=== PATIENT | female | born 1985 | race Caucasian/White ===

== ENCOUNTER 2019-12-14 16:43 | Emergency (ER) | payer BC, SELFPAY ==
[2019-12-14 16:58] VITALS: BP 151/80; PULSE 97; RESP 18; TEMP 36.6; O2SAT 99
--- NOTE | 2019-12-14 17:00 | ED.GENADULT ---
HPI - General Adult General Chief complaint: Skin/Abscess/Foreign Body Stated complaint: right foot wood under toenail Time Seen by Provider: 12/14/19 17:01 Source: patient Mode of arrival: ambulatory Limitations: no limitations History of Present Illness HPI narrative: 34-year-old female patient presents to the [facility] with complaints of a foreign body to the right pinky toe. Patient states that she was walking barefooted and kicked at 2 x 4 and got a splinter into under her pinky. Patient states that they attempted to try and get it out without success. Patient states that she is concerned because it starting to swell and she is currently 15 weeks . Patient is up-to-date on her tetanus. Related Data Home Medications Medication Instructions Recorded Confirmed PNV cmb#95-ferrous fumarate-FA 1 tablet PO DAILY 12/14/19 12/14/19 [ Formula] Allergies Allergy/AdvReac Type Severity Reaction Status Date / Time amoxicillin [From Augmentin] Allergy Hives Verified 12/14/19 17:04 clavulanic acid Allergy Hives Verified 12/14/19 17:04 [From Augmentin] Review of Systems Review of Systems: Narrative: CONSTITUTIONAL: Denies fever, chills, or sweats. EYES: Denies visual changes, redness, or discharge. ENT: Denies rhinorrhea, congestion, sore throat, or otalgia. CARDIOVASCULAR: Denies chest pain, palpitations, or edema. RESPIRATORY: Denies cough or dyspnea. GASTROINTESTINAL: Denies abdominal pain, nausea, vomiting, or diarrhea. GENITOURINARY: Denies dysuria or hematuria. SKIN: Denies rash or itching. MUSCULOSKELETAL: Denies back pain, joint pain, or myalgia. Obvious splinter under the toenail of the right pinky toe. NEUROLOGIC: Denies headache, numbness, or weakness. PSYCHIATRIC: Denies anxiety or depression. PMFSH Comments At the time of my signature I agree with nursing past medical history, surgical, social, and family history. There is no relevant family history pertinent to the presenting complaint. Exam Narrative: Exam Narrative: GENERAL: Well-appearing, well-nourished, and in no acute distress. HEAD: Normocephalic, atraumatic. EYES: PERRLA and EOMI. ENT: Nares clear, no rhinorrhea or epistaxis. Mucous membranes moist. NECK: Supple. No lymphadenopathy CHEST: Clear to auscultation. No respiratory distress. HEART: Regular rate and rhythm. No murmur heard. Normal peripheral pulses. ABDOMEN: Soft, nontender, nondistended, normal active bowel sounds. EXTREMITIES: Normal range of motion. No edema. Patient has an obvious splinter under the pinky toe of the right foot. There is slight swelling and erythema noted to the distal portion of the toe. SKIN: Warm, dry, no rash. NEURO: No focal deficits. Alert and oriented x3. Course Vital Signs Vital signs: Vital Signs Temperature 36.6 C 12/14/19 16:58 Pulse Rate 97 12/14/19 16:58 Respiratory Rate 18 12/14/19 16:58 Blood Pressure 151/80 H 12/14/19 16:58 Pulse Oximetry 99 12/14/19 16:58 Temperature 36.6 C 12/14/19 16:58 Pulse Rate 97 12/14/19 16:58 Respiratory Rate 18 12/14/19 16:58 Blood Pressure 151/80 H 12/14/19 16:58 Pulse Oximetry 99 12/14/19 16:58 Vital signs reviewed. The patient has been informed that they may have pre-hypertension or Hypertension based on a BP reading in the department. I recommend that the patient call the primary care provider listed on their discharge instructions or a physician of their choice this week to arrange follow up for further evaluation of possible pre-hypertension or Hypertension Procedures Other Procedure Procedure 1: Other Procedure: Patient refusing injected lidocaine or topical lidocaine due to being . Scissors were used to cut away part of the nail on the right pinky toe. The foreign body/splinter was exposed and removed with tweezers. No adverse effects. Ice pack was applied to help with swelling and pain. Antibiotic ointment and Band-Aid was applied to t
== END 2019-12-14 17:43 | disposition home or self-care (01) ==
PROVIDERS: Emergency Provider Nurse Practitioner Family; PCP Internal Medicine Infectious Disease
DX: O9A.212 Injury, poisoning and certain other consequences of external causes complicating pregnancy, second trimester (principal); Z3A.15 15 weeks gestation of pregnancy; S91.144A Puncture wound with foreign body of right lesser toe(s) without damage to nail, initial encounter; W45.8XXA Other foreign body or object entering through skin, initial encounter
CPT/HCPCS: 99212; G0463